=== PATIENT | female | born 1985 | race Caucasian/White ===

== ENCOUNTER → 2024-10-06 09:43 | Outpatient (REF) | payer BC, SELFPAY | LOC: PNTC 09:43 | PROVIDERS: ATTENDING PHYSICIAN Obstetrics & Gynecology | DX: Z36.0 Encounter for antenatal screening for chromosomal anomalies (principal); Z36.82 Encounter for antenatal screening for nuchal translucency; O09.819 Supervision of pregnancy resulting from assisted reproductive technology, unspecified trimester; Z52.819 Egg (Oocyte) donor, unspecified | CPT/HCPCS: 76801; 76813 ==

== ENCOUNTER → 2024-11-04 10:53 | Outpatient (REF) | payer BC, SELFPAY | LOC: PNTC 10:53 | PROVIDERS: ATTENDING PHYSICIAN Obstetrics & Gynecology | DX: O09.812 Supervision of pregnancy resulting from assisted reproductive technology, second trimester (principal); O99.212 Obesity complicating pregnancy, second trimester; O09.522 Supervision of elderly multigravida, second trimester | CPT/HCPCS: 76805 ==

== ENCOUNTER → 2024-12-01 15:09 | Outpatient (REF) | payer BC, SELFPAY | LOC: PNTC 15:09 | PROVIDERS: ATTENDING PHYSICIAN Obstetrics & Gynecology | DX: O09.519 Supervision of elderly primigravida, unspecified trimester (principal); O09.819 Supervision of pregnancy resulting from assisted reproductive technology, unspecified trimester; O99.210 Obesity complicating pregnancy, unspecified trimester; Z52 Donors of organs and tissues; Z52.819 Egg (Oocyte) donor, unspecified | CPT/HCPCS: 76811; 76817 ==

== ENCOUNTER → 2024-12-31 13:29 | Outpatient (REF) | payer BC, SELFPAY | LOC: PNTC 13:29 | PROVIDERS: ATTENDING PHYSICIAN Student in an Organized Health Care Education/Training Program | DX: O09.529 Supervision of elderly multigravida, unspecified trimester (principal) | CPT/HCPCS: 76816 ==

== ENCOUNTER → 2025-01-28 09:59 | Outpatient (REF) | payer BC, SELFPAY | LOC: PNTC 09:59 | PROVIDERS: ATTENDING PHYSICIAN Student in an Organized Health Care Education/Training Program | DX: O09.529 Supervision of elderly multigravida, unspecified trimester (principal) | CPT/HCPCS: 76816 ==

== ENCOUNTER → 2025-02-25 13:18 | Outpatient (REF) | payer BC, SELFPAY | LOC: PNTC 13:18 | PROVIDERS: ATTENDING PHYSICIAN Student in an Organized Health Care Education/Training Program | DX: O09.529 Supervision of elderly multigravida, unspecified trimester (principal) | CPT/HCPCS: 76816 ==

== ENCOUNTER → 2025-03-11 13:24 | Outpatient (REF) | payer BC, SELFPAY | LOC: PNTC 13:24 | PROVIDERS: ATTENDING PHYSICIAN Student in an Organized Health Care Education/Training Program | DX: O09.529 Supervision of elderly multigravida, unspecified trimester (principal) | CPT/HCPCS: 59025; 76815 ==

== ENCOUNTER → 2025-03-18 13:24 | Outpatient (REF) | payer BC, SELFPAY | LOC: PNTC 13:24 | PROVIDERS: ATTENDING PHYSICIAN Student in an Organized Health Care Education/Training Program | DX: O09.529 Supervision of elderly multigravida, unspecified trimester (principal) | CPT/HCPCS: 59025; 76815 ==

== ENCOUNTER → 2025-03-25 13:26 | Outpatient (REF) | payer BC, SELFPAY | LOC: PNTC 13:26 | PROVIDERS: ATTENDING PHYSICIAN Student in an Organized Health Care Education/Training Program | DX: O09.529 Supervision of elderly multigravida, unspecified trimester (principal) | CPT/HCPCS: 36415; 59025; 76816 ==

== ENCOUNTER → 2025-04-01 13:26 | Outpatient (REF) | payer BC, SELFPAY | LOC: PNTC 13:26 | PROVIDERS: ATTENDING PHYSICIAN Student in an Organized Health Care Education/Training Program | DX: O09.529 Supervision of elderly multigravida, unspecified trimester (principal) | CPT/HCPCS: 59025; 76815 ==

== ENCOUNTER → 2025-04-08 13:26 | Outpatient (REF) | payer BC, SELFPAY | LOC: PNTC 13:26 | PROVIDERS: ATTENDING PHYSICIAN Student in an Organized Health Care Education/Training Program | DX: O09.529 Supervision of elderly multigravida, unspecified trimester (principal) | CPT/HCPCS: 59025; 76815 ==

== ENCOUNTER 2025-04-15 05:32 | Inpatient (IN) | payer BC, SELFPAY ==
--- NOTE | 2025-04-14 16:41 | HPS.HSE ---
Family Physician
-
Family Physician: NO INTERVIEW UNKNOWN
Chief Complaint
-
History of Present Illness
HPI: Patient is a 39yo with an YESENIA of 04/18 who presents for scheduled repeat . She has no complaints.
complications
- Hx C/Sx1
- IVF - donor egg
- BMI 35
- Advanced maternal age
PMHx: obesity
Meds: PNV
Surghx: C/Sx1, D&C, wisdom teeth, abdominoplasty, ganglion cyst
NKDA
Socialhx: denies tobacco, etoh or illicit drug use
Famhx: non-contributory
OBHx: SVDx1, twins- /CS, SABx4
labs: Blood type A+, Ab neg, RPR non-reactive, UCx neg, HBsAg neg, HIV neg, Rubella immune, Hep C neg, 1hr 129, GBS neg
Medical History
Past Medical History
Past Medical History: Reports Other
Past Surgical History: Reports , Gynocological and Other
Social History
Tobacco: Non-smoker
Alcohol: None
Drug: None
Family History
Family History: Not pertinent
Allergies / Home Medications
Allergies reflects when Allergies were last updated in [facility] [employer].
Home Medications with original date entered in [employer]
Allergy/Medication List:
Meds: PNV
NKDA
Review of Systems
-
A 12 point ROS was completed and negative except as noted: Yes
Physical Exam
Physical Exam
General: Well Developed and Well Nourished
HEENT: NormoCephalic
Respiratory: Non Labored Respirations
Cardiac: Regular Rhythm
Skin: Warm and Dry
Neuro: Awake and Alert
Psych: Calm
Impression/Plan
-
IMPRESSION:
Patient is a 39yo who presents for schedule repeat section
PLAN:
- Risks, benefits and alternatives to repeat reviewed including bleeding, infection, damage to surrounding structures and need for future operations. Consent previously signed in the office. Patient consented for a blood transfusion in
case of emergency
- 2g Ancef prior to incision
- Proceed with repeat section
[2025-04-15 05:35] VITALS: BMI 35.1
[2025-04-15 05:46] VITALS: BP 133/80
[2025-04-15 06:13] LABS: Hematocrit 33.8 % (37.0-47.0); Hemoglobin 11.9 g/dL (12.0-16.0); Mean Corp Hgb Conc. 35.2 g/dL (33.0-37.0); Mean Corpuscular Volume 79.2 fL (81.0-99.0); Platelet Count 228 10^3/uL (130-400); Red Cell Dist. Width 14.2 % (11.5-14.5)
[2025-04-15] MEDS: BICITRA 30 ML PO (06:56)
[2025-04-15] MEDS: TYLENOL 975 MG PO (06:56)
[2025-04-15] MEDS: ANCEF 10 IV (06:56)
[2025-04-15] MEDS: TORADOL 15 MG IV ×2 (14:50→20:33)
--- NOTE | 2025-04-15 19:21 | OR.RPT ---
Operative Report
Operative Report
Procedure date: 04/15/2025
Preop diagnosis: IUP @39.4, AMA, Hx C/Sx1, IVF , BMI 35
Postop diagnosis: same
Procedure: Repeat low transverse section
Surgeon: Fabian
Anesthesia: Fagan, spinal
QBL: 870mL
Findings: viable female infant born at 0856 via vacuum assist, Apgars 8/9, dense adhesions between rectus muscles, normal appearing uterus, bilateral fallopian tubes and ovaries
Complications: none
Indications: Patient is a 39yo @39.4 who presents for schedule repeat section. She has a history of one prior section and was hopeful for a trial of labor but did not go into labor. Risks, benefits and alternatives
discussed and consents were previously signed in the office.
Procedure: Patient was taken to the operating room where spinal anesthesia was administered and found to be adequate. 2g of Ancef were given for antibiotic prophylaxis. The abdomen was prepped with ChloraPrep. The patient was draped in the normal
sterile fashion. She was placed in the dorsal supine position with a left lateral tilt. A Pfannenstiel incision was made with a 10 blade through the prior abdominoplasty scar and carried down to the fascia with a scalpel. Hemostasis achieved with
Bovie. The fascia was incised and dissected laterally with Davis scissors. The superior aspect of the fascia was grasped with Susan clamps. The underlying rectus fascia was sharply dissected with Davis scissors. In a similar fashion the inferior
aspect of the fascia was elevated with Susan clamps and the rectus muscle was dissected off with Davis scissors. The rectus muscles were densely adherent. The rectus were down the midline to the level of the pubic symphysis with sharp
dissection with Metzenbaum scissors, scalpel, and manual dissection. The peritoneum was elevated with hemostats and entered using Metzenbaum scissors. The peritoneum was extended using manual traction.
Ross retractor and bladder blade were placed revealing good visualization of the bladder. The vesicouterine peritoneum was identified. A thin lower uterine segment was noted. The lower uterine segment was incised with a scalpel. Clear amniotic
fluid noted at entry. The uterine incision was extended bluntly with lateral and upward traction.
The fetus was in cephalic presentation. The head was elevated out of the pelvis with special attention paid to avoid using the uterine incision as a fulcrum. Gentle fundal pressure was applied once the head was brought to the incision. The head did
not easily delivery through the hysterotomy with fundal pressure despite adequate space. A Kiwi vacuum was applied and the head delivered with one pull and no pop offs. The rest of the infant delivered without difficulty. Delayed cord clamping was
performed. The was handed off to the feather drying machine operator. IV oxytocin was started to facilitate uterine contractions. The placenta was manually extracted. The uterus was exteriorized. Allis clamps were placed at the apices of the hysterotomy. The
inside of the uterus was wiped with a lap sponge to assure complete removal of placental membranes. Fundal massage was performed and uterus was firm. The uterine incision was closed with 0 Vicryl in a running locked fashion. A horizontal imbricating
stitch was done on the hysterotomy with 0 Vicryl. The hysterotomy was inspected and noted to be hemostatic. The uterus was placed back in the abdomen. Blood clots and fluid were wiped out of the abdomen and pelvis with moist laparotomy sponges. The
hysterotomy was examined and was hemostatic.
The rectus muscles were inspected and any oozing vessels were cauterized with the Bovie to achieve hemostasis. The fascial layer was closed in a running continuous fashion using 0 Vicryl. The subcutaneous tissue was copiously irrigated and any small
bleeding vessels were cauterized with Bovie cautery. The subcutaneous tissue was reapproximated in a running continuous fashion with 2-0 Plain. The skin was closed with 4-0 Vicryl in a subcuticular fashion and covered with skin glue. The patient
tolerated the procedure well. All sponge and instrument counts were correct times two. The patient was taken to the recovery room in stable condition. Elizabeth catheter was draining clear urine at the end of the procedure.
[2025-04-15] MEDS: COLACE 100 MG PO (20:33)
[2025-04-16] MEDS: TORADOL 15 MG IV ×2 (02:28→07:47)
[2025-04-16 05:09] LABS: Hematocrit 25.6 % (37.0-47.0); Hemoglobin 9.1 g/dL (12.0-16.0); Mean Corp Hgb Conc. 35.5 g/dL (33.0-37.0); Mean Corpuscular Volume 80.3 fL (81.0-99.0); Platelet Count 219 10^3/uL (130-400); Red Cell Dist. Width 13.9 % (11.5-14.5)
[2025-04-16] MEDS: SYNTHROID 50 MCG PO (05:56)
--- NOTE | 2025-04-16 07:15 | W.PN.ANS.POP ---
Anesthesia Post Operative
- Anesthesia Post Op Note
Vital Signs Stable-See Nursing Note: Yes
Airway Patent: Yes
Adequate Pain Control: Yes
Change in Mental Status: No
Current Postoperative Nausea & Vomiting: No
Anesthesia Complications: No
General Anesthetic Recall: No
Unplanned Admission: No
Post Op Hydration Adequate: Yes
[2025-04-16] MEDS: COLACE 100 MG PO ×2 (07:47→20:34)
[2025-04-16] MEDS: FEOSOL 325 MG PO (07:47)
[2025-04-16] MEDS: PRENATAL PLUS 1 TABLET PO (07:47)
[2025-04-16 13:03] LABS: Syphilis/T. pallidum Ab Reflex Negative (Negative)
[2025-04-16] MEDS: MOTRIN 600 MG PO ×2 (13:49→21:13)
[2025-04-16] MEDS: TYLENOL 650 MG PO ×2 (13:49→21:13)
[2025-04-17] MEDS: SYNTHROID 50 MCG PO (06:11)
[2025-04-17] MEDS: MOTRIN 600 MG PO ×2 (06:11→12:29)
[2025-04-17] MEDS: TYLENOL 650 MG PO (06:11)
[2025-04-17] MEDS: PRENATAL PLUS 1 TABLET PO (08:28)
[2025-04-17] MEDS: FEOSOL 325 MG PO ×2 (08:28→08:30)
[2025-04-17] MEDS: COLACE 100 MG PO (08:29)
--- NOTE | 2025-04-17 10:23 | W.DS.TRANS ---
DC Summary - Band Presser
-
Discharge Instructions:
Discharge Diagnosis/Procedures delivered 39.4 wks; elective repeat
LTCS; mild anemia
Diet Regular
Activity No strenuous activity
Driving Restrictions No driving for 2 weeks
Bathing Restrictions OK to Shower
Instructions:
Stand-Alone Forms: LDRP Delivery
Changes to Home Medications: No
Discharge Medications:
DC Medications w/original date entered in [facility]
1 tab PO DAILY 04/15/25
levothyroxine 50 mcg PO DAILY 04/15/25
acetaminophen 325 mg tablet 650 mg (2 x 325 mg) PO Q4HPRN PRN mild pain #0 tabs 04/16/25
ferrous sulfate 325 mg (65 mg iron) tablet (FeroSul) 325 mg PO DAILY #0 tabs 04/16/25
ibuprofen 600 mg tablet 600 mg PO Q6HPRN PRN cramps #0 tabs 04/16/25
Home Medication Changes
Pending Results: No
Total time spent discharging patient (in min): 25
== END 2025-04-17 13:34 | disposition home or self-care (01) | DRG 788 ==
LOC: LDRP 05:32
PROVIDERS: ADMITTING PHYSICIAN Student in an Organized Health Care Education/Training Program
PROC: 10D00Z1 Extraction of Products of Conception, Low, Open Approach (ICD-10-PCS; 2025-04-15)
DX: O34.211 Maternal care for low transverse scar from previous cesarean delivery (principal); Z3A.39 39 weeks gestation of pregnancy; Z37.0 Single live birth; O99.214 Obesity complicating childbirth; O99.02 Anemia complicating childbirth; K66.0 Peritoneal adhesions (postprocedural) (postinfection); N97.9 Female infertility, unspecified
CPT/HCPCS: 36415; 85027; 86780; 86850; 86900; 86901